=== PATIENT | male | born 1985 | race African-American/Black ===

== ENCOUNTER 2017-02-27 10:30 | Emergency (ER) | payer SELFPAY ==
[~2017-02-27] VITALS: Ht 188 cm; Wt 80.0 kg
[~2017-02-27 10:30] MED LIST: POLY10O RIGHT EYE
[2017-02-27 10:33] VITALS: BP 148/89; PULSE 87; RESP 17; TEMP 98.4; O2SAT 96
[2017-02-27] MEDS ORDERED: ACYC-101 PO (11:32)
[2017-02-27] MEDS ORDERED: PRED20 PO (11:32)
--- NOTE | 2017-02-27 11:32 | PD ---
HPI Chief Complaint: Neuro Symptoms/ Deficits Time Seen by Provider: 11:25 Travel History International Travel<30 days: No Contact w/Intl Traveler<30days: No Traveled to known affect area: No History of Present Illness HPI 31-year-old male complaining left-sided facial weakness. Patient states that the symptoms started last night. Patient states that he has intermittent right ear pain for the past several weeks. Patient denies any visual change. Patient denies any chest pain or shortness of breath. Patient denies abdominal pain. Patient denies any focal weakness or numbness of extremity. Patient states that the food doesn't taste right this morning. Patient denies any hearing problem. Patient denies history of TIA or CVA. Patient denies history hypertension, diabetes, hyperlipidemia. Patient is a smoker. Patient denies any history of illicit drug abuse. PFSH Past Medical History ?: Not Social History Alcohol Use: Yes (on occasion) Tobacco Use: Yes (0.5 ppd) Substance Use: No Allergies-Medications (Allergen,Severity, Reaction): Coded Allergies: No Known Allergies (Verified , 07/08/13) Reported Meds & Prescriptions Reported Meds & Active Scripts Active Prednisone 20 Mg Tab 20 Mg PO BID Zovirax (Acyclovir) 800 Mg Tab 800 Mg PO 5 TIMES A DAY Polytrim Opth (Polymyxin/Trimethoprim Sulfate) 10 Ml Soln 1 Drop RIGHT EYE Q4 7 Days Review of Systems General / Constitutional: No: Fever Eyes: No: Visual changes HENT: No: Headaches Cardiovascular: No: Chest Pain or Discomfort Respiratory: No: Shortness of Breath Gastrointestinal: No: Abdominal Pain Genitourinary: No: Dysuria Musculoskeletal: No: Pain Skin: No Rash Neurologic: Positive: Weakness Psychiatric: No: Depression Endocrine: No: Polydipsia Hematologic/Lymphatic: No: Easy Bruising Physical Exam Narrative GENERAL: Well-nourished, well-developed patient. SKIN: Focused skin assessment warm/dry. HEAD: Normocephalic. EYES: No scleral icterus. No injection or drainage. Pupils 3 mm equal reactive. Right TM mild erythematous. NECK: Supple, trachea midline. No JVD or lymphadenopathy. CARDIOVASCULAR: Regular rate and rhythm without murmurs, gallops, or rubs. RESPIRATORY: Breath sounds equal bilaterally. No accessory muscle use. GASTROINTESTINAL: Abdomen soft, non-tender, nondistended. MUSCULOSKELETAL: No cyanosis, or edema. BACK: Nontender without obvious deformity. No CVA tenderness. Neurologic exam: Patient has weakness on the left side of face including the forehead, the left eyelid and the left side of the mouth. No obvious weakness or numbness of the extremity. Data Data Last Documented VS Vital Signs Date Time Temp Pulse Resp B/P (MAP) Pulse Ox O2 Delivery O2 Flow Rate FiO2 02/27/17 11:21 79 18 98 Room Air 02/27/17 10:33 98.4 148/89 (108) MDM Medical Decision Making Medical Screen Exam Complete: Yes Emergency Medical Condition: Yes Differential Diagnosis Differential diagnosis including Vasques's Palsy, TIA, CVA. Narrative Course 31-year-old male with left-sided facial weakness. Diagnosis Primary Impression: Vasques's palsy Additional Impression: Right otitis media Qualified Codes: H66.001 - Acute suppurative otitis media without spontaneous rupture of ear drum, right ear Patient Instructions: General Instructions Additional Instructions: Teardrop to the left eye during daytime. Tape left eyelid at night. Take medications as directed. Follow-up with personal physician and neurologist. Med/Other Pt SpecificInfo: Prescription(s) given Scripts Amoxicillin (Amoxicillin) 500 Mg Cap 500 MG PO TID for Infection, #30 CAP 0 Refills Prov: Blaine Alvares MD 02/27/17 Prednisone (Prednisone) 20 Mg Tab 20 MG PO BID, #14 TAB 0 Refills Prov: Blaine Alvares MD 02/27/17 Acyclovir (Zovirax) 800 Mg Tab 800 MG PO 5 TIMES A DAY for Mgmt Viral Infection, #35 TAB 0 Refills Prov: Blaine Alvares MD 02/27/17 Disposition: 01 DISCHARGE HOME Condition: Stable Blaine Alvares MD Feb 27, 2017 11:32
[2017-02-27] MEDS ORDERED: AMOX500C PO (11:35)
== END 2017-02-27 12:17 | disposition home or self-care (01) ==
LOC: NEPD 10:30
DX: G51.0 Bell's palsy (principal); H66.001 Acute suppurative otitis media without spontaneous rupture of ear drum, right ear
CPT/HCPCS: 99284